=== PATIENT | male | born 1980 | race American Indian/Alaskan Native ===

== ENCOUNTER 2017-10-10 06:27 | Day surgery (SDC) | payer BC ==
[2012-09-15 22:48] VITALS: BMI 29.1
[2017-10-10] MEDS ORDERED: ceFAZolin 1 gm in NS 1 GM/100 ML BAG IVPB ONE ×2 (06:47→08:59)
[2017-10-10] MEDS ORDERED: Morphine 10 mg/5 ml Oral Soln PO PRN (07:34)
[2017-10-10] MEDS ORDERED: Dextrose 5%/0.45% NS 1,000 ML IV SCH (07:45)
[2017-10-10] MEDS ORDERED: Propofol 10 mg/ml Inj (20 ML) ONE (08:08)
[2017-10-10] MEDS ORDERED: Lactated Ringer's 1,000 ML IV ONE (08:50)
[2017-10-10] MEDS ORDERED: Midazolam 2 MG/2 ML VIAL ONE ×2 (08:55→09:05)
[2017-10-10] MEDS: HYDROmorphone 0.5 mg/0.5 ml ISec IVP PRN ×4 (10:37→11:20)
[2017-10-10] MEDS ORDERED: Dextrose 5%/0.45% NS 500 ML IV ONE ×2 (10:53)
[2017-10-10 11:57] VITALS: RESP 16
[2017-10-10 12:13] VITALS: O2SAT 98
[2017-10-10 12:59] VITALS: BP 128/76; PULSE 74; TEMP 97.4
--- NOTE | 2017-10-10 20:36 | OP ---
PROCEDURE DATE: 10/10/2017 PREOPERATIVE DIAGNOSIS: Large adenoids. POSTOPERATIVE DIAGNOSIS: Large adenoids. PROCEDURE: Adenoidectomy. SURGEON: Yaya Dyer MD SIGNIFICANT FINDINGS: Large adenoids. DESCRIPTION OF PROCEDURE: The patient was brought into the room, placed in supine position, anesthesia was initiated through an ET tube. Shoulder roll was placed, neck extended. Mouth gag was placed in the oral cavity opened and suspended on the Sinha manager sterile processing the usual manner. Red rubber catheters were inserted into the nasal cavity and taken out of the mouth and clamped in order to provide retraction of the soft palate. Mirror was used to visualize the adenoids, which were noted to be enlarged. Curette was used to remove the adenoids and suctioned cautery and tonsil sponges were used to control bleeding. The red rubber catheter was removed. The mouth gag was taken down and removed. The patient was taken off anesthesia and taken to recovery room in stable manner. Yaya Dyer MD
== END 2017-10-10 12:57 | disposition home or self-care (01) ==
LOC: C.SDS 06:27
PROVIDERS: ATTEND Otolaryngology
DX: J35.2 Hypertrophy of adenoids (principal)
CPT/HCPCS: 42831; J0690; J1170; J2001; J2250; J2704; J3010; J7042; J7120